=== PATIENT | female | born 1990 | race Caucasian/White ===

== ENCOUNTER 2016-10-04 10:41 | Day surgery (SDC) | payer BC ==
[~2016-10-04] VITALS: Ht 165.1 cm; Wt 58.9 kg
[~2016-10-04 10:41] MED LIST: ADDERALL30 MG PO; ALEVE-D SINUS1 EACH PO; ENDOCET 5-3251 EACH PO; IBUPROFEN800 MG PO; KEFLEX500 MG PO; METROGEL-VAGINA70 GM VG; PRENATAL TABLE1 EAC3 PO; PYRIDIUM100 MG PO
[2016-10-04 11:42] VITALS: BP 123/75
[2016-10-04 12:17] LABS: EOSINOPHIL (%) 0.7 % (0-5); HEMATOCRIT 40.2 % (36.0-46.0); LYMPHOCYTE COUNT 1.5 K/uL (1.0-2.8); MCH 30.9 PG (29.0-34.0); MCHC 34.3 G/DL (30.0-36.0); MCV 89.9 FL (83-99); MEAN PLAT.VOLUME 10.1 uM^3 (9.5-12.4); MONOCYTE (%) 7.1 % (3-12); MONOCYTE COUNT 0.4 K/uL (0-0.8); NEUTROPHIL (%) 66.3 % (45-76); NEUTROPHIL COUNT 3.9 K/uL (1.8-6.4); PLATELET COUNT 187 K/uL (156-360); RBC DIS.WIDTH-CV 12.3 % (11.8-14.6); RBC DIS.WIDTH-SD 40.2 % (39-53); RED BLOOD COUNT 4.47 M/uL (3.80-5.20); WHITE BLOOD COUNT 5.9 K/uL (4.1-10.2)
[2016-10-04 15:04] VITALS: BP 105/65
[2016-10-04 16:01] VITALS: BP 119/69
== END 2016-10-04 16:07 | disposition home or self-care (01) ==
LOC: SDC 10:41
PROVIDERS: Obstetrics & Gynecology
PROC: 10D17ZZ Extraction of Products of Conception, Retained, Via Natural or Artificial Opening (ICD-10-PCS; principal; 2016-10-04)
DX: O02.1 Missed abortion (principal); K21.9 Gastro-esophageal reflux disease without esophagitis
CPT/HCPCS: 85025; 86850; 86900; 86901; 88305; J1100; J1885; J2250; J2405; J3010

== ENCOUNTER 2018-02-10 10:41 | Inpatient (IN) | payer BC ==
[2018-02-10] VITALS (33 sets, daily range): BP systolic 0–164; BP diastolic 0–103
[~2018-02-10] VITALS: Ht 165.1 cm; Wt 86.6 kg
[2018-02-10 11:44] LABS: BASOPHIL (%) 0.3 % (0-1); EOSINOPHIL (%) 0.4 % (0-5); HEMATOCRIT 36.6 % (36.0-46.0); HEMOGLOBIN 12.6 G/DL (11.9-15.5); IMMATURE GRANULOCYTE (%) 1.3 % (0.0-0.7); LYMPHOCYTE (%) 21.7 % (15-42); LYMPHOCYTE COUNT 1.7 K/uL (1.0-2.8); MCHC 34.4 G/DL (30.0-36.0); MCV 95.8 FL (83-99); MONOCYTE (%) 7.6 % (3-12); MONOCYTE COUNT 0.6 K/uL (0-0.8); NEUTROPHIL (%) 68.7 % (45-76); NEUTROPHIL COUNT 5.3 K/uL (1.8-6.4); PLATELET COUNT 94 K/uL (156-360); RBC DIS.WIDTH-CV 12.1 % (11.8-14.6); RED BLOOD COUNT 3.82 M/uL (3.80-5.20); WHITE BLOOD COUNT 7.7 K/uL (4.1-10.2)
[2018-02-10 11:58] LABS: UR CREATININE CONCENTRATION 98.8 MG/DL
[2018-02-10 12:10] LABS: ALBUMIN 3.2 G/DL (3.2-4.8); ALKALINE PHOSPHATASE 125 IU/L (3-129); ALT (GPT) 12 IU/L (3-49); AST (GOT) 16 IU/L (2-34); CHLORIDE 107 MEQ/L (99-109); CREATININE 0.6 MG/DL (0.6-1.3); GFR ESTIMATE (CALCULATED) > 59 mL/min/; GLUCOSE 96 mg/dL (70-99); SODIUM 138 MEQ/L (136-147); TOTAL BILIRUBIN 0.3 MG/DL (0.0-1.0); TOTAL PROTEIN 5.3 G/DL (6.4-8.3); UREA NITROGEN (BUN) 11 mg/dL (9-23)
[2018-02-10 21:49] LABS: AMPHETAMINE PRESUMPTIVE POSITIVE (500 ng/mL); BARBITURATES NEGATIVE (200 ng/mL); BENZODIAZEPINES NEGATIVE (150 ng/mL); BUPRENORPHINE NEGATIVE (10 ng/mL); COCAINE NEGATIVE (150 ng/mL); METHADONE NEGATIVE (200 ng/mL); METHAMPHETAMINE NEGATIVE (500 ng/mL); OPIATES (MORPHINE) NEGATIVE (100 ng/mL); OXYCODONE NEGATIVE (100 ng/mL); PHENCYCLIDINE NEGATIVE (25 ng/mL); PROPOXYPHENE NEGATIVE (300 ng/mL); THC CANNABINOIDS NEGATIVE (50 ng/mL); TRICYCLIC ANTIDEPRESSANTS NEGATIVE (300 ng/mL)
[2018-02-11] VITALS (28 sets, daily range): BP systolic 92–160; BP diastolic 51–82
[2018-02-11 04:46] LABS: BASOPHIL (%) 0.1 % (0-1); EOSINOPHIL (%) 0 % (0-5); HEMATOCRIT 36.6 % (36.0-46.0); HEMOGLOBIN 12.6 G/DL (11.9-15.5); IMMATURE GRANULOCYTE (%) 1.4 % (0.0-0.7); LYMPHOCYTE (%) 10.5 % (15-42); LYMPHOCYTE COUNT 1.1 K/uL (1.0-2.8); MCH 33.6 PG (29.0-34.0); MCHC 34.4 G/DL (30.0-36.0); MCV 97.6 FL (83-99); MONOCYTE COUNT 0.2 K/uL (0-0.8); PLATELET COUNT 97 K/uL (156-360); RBC DIS.WIDTH-CV 12.3 % (11.8-14.6); RBC DIS.WIDTH-SD 43.8 % (39-53); RED BLOOD COUNT 3.75 M/uL (3.80-5.20); WHITE BLOOD COUNT 10.4 K/uL (4.1-10.2)
[2018-02-11 05:03] LABS: ALBUMIN 3.1 g/dL (3.2-4.8); CHLORIDE 104 mEq/L (99-109); POTASSIUM 4.8 mEq/L (3.7-5.4); SODIUM 136 mEq/L (136-147)
[2018-02-11 05:06] LABS: GLUCOSE 111 mg/dL (70-99)
[2018-02-11 05:08] LABS: TOTAL BILIRUBIN 0.5 mg/dL (0.0-1.0)
[2018-02-11 05:09] LABS: ALKALINE PHOSPHATASE 139 IU/L (3-129); CREATININE 0.7 mg/dL (0.6-1.3); GFR ESTIMATE (CALCULATED) > 59 mL/min/
[2018-02-11 05:10] LABS: UREA NITROGEN (BUN) 11 mg/dL (9-23)
[2018-02-11 05:11] LABS: AST (GOT) 19 IU/L (2-34)
[2018-02-11 05:12] LABS: ALT (GPT) 13 IU/L (3-49)
[2018-02-11] MEDS ORDERED: IBUPROFEN800 MG PO (13:55)
[2018-02-12] VITALS (13 sets, daily range): BP systolic 112–145; BP diastolic 58–90
[2018-02-12 06:51] LABS: BASOPHIL (%) 0.2 % (0-1); EOSINOPHIL (%) 0.1 % (0-5); HEMATOCRIT 30.2 % (36.0-46.0); IMMATURE GRANULOCYTE (%) 2.4 % (0.0-0.7); LYMPHOCYTE (%) 18.4 % (15-42); LYMPHOCYTE COUNT 1.9 K/uL (1.0-2.8); MCH 33.1 PG (29.0-34.0); MCHC 33.8 G/DL (30.0-36.0); MCV 98.1 FL (83-99); MONOCYTE (%) 4.7 % (3-12); MONOCYTE COUNT 0.5 K/uL (0-0.8); NEUTROPHIL (%) 74.2 % (45-76); NEUTROPHIL COUNT 7.5 K/uL (1.8-6.4); PLATELET COUNT 102 K/uL (156-360); RBC DIS.WIDTH-CV 12.5 % (11.8-14.6); RBC DIS.WIDTH-SD 44.7 % (39-53); RED BLOOD COUNT 3.08 M/uL (3.80-5.20); WHITE BLOOD COUNT 10.1 K/uL (4.1-10.2)
[2018-02-12 06:52] LABS: HEMOGLOBIN 10.2 G/DL (11.9-15.5)
[2018-02-13 03:00] VITALS: BP 118/79
[2018-02-13 07:14] VITALS: BP 130/75
[2018-02-13 12:27] VITALS: BP 135/81
[2018-02-13] MEDS ORDERED: LABETALOL HCL200 MG PO (13:33)
== END 2018-02-13 14:54 | disposition home or self-care (01) | DRG 775 ==
LOC: LDRP-OP 10:41 → 2WEST 10:42 → LDRP-OP 04-08 08:44
PROVIDERS: Advanced Practice Midwife; Nurse Practitioner; Obstetrics & Gynecology
DX: O14.14 Severe pre-eclampsia complicating childbirth (principal); O75.89 Other specified complications of labor and delivery; O99.824 Streptococcus B carrier state complicating childbirth; O99.12 Other diseases of the blood and blood-forming organs and certain disorders involving the immune mechanism complicating childbirth; D69.6 Thrombocytopenia, unspecified; T85.620A Displacement of cranial or spinal infusion catheter, initial encounter; Y83.8 Other surgical procedures as the cause of abnormal reaction of the patient, or of later complication, without mention of misadventure at the time of the procedure; Z3A.36 36 weeks gestation of pregnancy; Z37.0 Single live birth; O99.62 Diseases of the digestive system complicating childbirth; K21.9 Gastro-esophageal reflux disease without esophagitis; Z87.11 Personal history of peptic ulcer disease; O99.344 Other mental disorders complicating childbirth; F90.9 Attention-deficit hyperactivity disorder, unspecified type; Z85.820 Personal history of malignant melanoma of skin
CPT/HCPCS: 80053; 82570; 83735; 84156; 84550; 84999; 85025; C1755; G0378; J0702; J2405; J2540; J3475; J7120